=== PATIENT | female | born 2000 | race Hispanic/Latino ===

== ENCOUNTER 2024-05-16 19:35 | Emergency (ER) | payer OTHER ==
[~2024-05-16] VITALS: Ht 160 cm; Wt 55.3 kg
[2024-05-16 19:55] VITALS: PULSE 85; RESP 18; TEMP 98.5
[2024-05-16 22:15] VITALS: BP 136/90; PULSE 85; RESP 18; TEMP 98.5; O2SAT 100
== END 2024-05-16 20:20 | disposition home or self-care (01) ==
LOC: FSED 19:40
DX: S16.1XXA Strain of muscle, fascia and tendon at neck level, initial encounter (principal); S29.012A Strain of muscle and tendon of back wall of thorax, initial encounter; V43.62XA Car passenger injured in collision with other type car in traffic accident, initial encounter; Y92.488 Other paved roadways as the place of occurrence of the external cause
CPT/HCPCS: 99283